=== PATIENT | male | born 1970 | race Caucasian/White ===

== ENCOUNTER 2021-04-16 11:33 | Emergency (ER) | payer OTHER, SELFPAY ==
--- NOTE | 2021-04-16 11:38 | ED.URI ---
HPI - URI/Sore Throat General Chief Complaint: Upper Respiratory Infection Stated Complaint: sinus pressure and ears clogged Time Seen by Provider: 04/16/21 11:39 Source: patient and RN notes reviewed History of Present Illness HPI Narrative: Patient is a 50-year-old male who presents the urgent care with complaints of sinus pressure and bilateral ear discomfort with ringing in the ears for the last week. Patient states that he has been putting [id number] eardrops in the ears, Q-tips and water to try to flush them out. Patient has also been taking Sudafed. No other acute complaints. Denies any fever, chills, nausea or vomiting. No acute distress noted. Patient aware of the plan of care. Some parts of this dictation were generated by voice recognition software and may contain typographical and/or grammatical inaccuracies. Related Data Home Medications Medication Instructions Recorded Confirmed diclofenac sodium 75 mg PO BID 04/16/21 04/16/21 oxygen-air delivery systems 04/16/21 04/16/21 [[facility] Nasal Cpap System] tramadol 50 mg PO BID PRN 04/16/21 04/16/21 zolpidem 10 mg PO HS 04/16/21 04/16/21 Allergies Allergy/AdvReac Type Severity Reaction Status Date / Time No Known Drug Allergies Allergy Unknown Unknown Verified 04/16/21 11:46 Review of Systems Review of Systems: CONSTITUTIONAL: Denies fever, chills, or sweats. EYES: Denies visual changes, redness, or discharge. ENT: Reports of bilateral tinnitus, otalgia, rhinorrhea and sinus pressure CARDIOVASCULAR: Denies chest pain, palpitations, or edema. RESPIRATORY: Reports a mild cough without dyspnea GASTROINTESTINAL: Denies abdominal pain, nausea, vomiting, or diarrhea. GENITOURINARY: Denies dysuria or hematuria. SKIN: Denies rash or itching. MUSCULOSKELETAL: Denies back pain, joint pain, or myalgia. NEUROLOGIC: Denies headache, numbness, or weakness. All other systems reviewed are negative, except as documented in HPI. PMFSH Comments At the time of my signature, I reviewed and agree with the nursing past medical, surgical, social, and family history. There is no relevant family history pertinent to the patient complaint. Exam Narrative: GENERAL: This is a well-nourished, well-developed patient, in no apparent distress. HEAD: normocephalic, atraumatic. EYES: PERRL. Sclera clear/white. Vision is grossly intact. EARS: External ears normal, auditory canals clear and without drainage, cerumen impaction to the right with unable to visualize TM. Moderate effusion behind the left TM without otitis. Hearing grossly intact. NOSE: External nose normal with no obvious nasal discharge, nares without redness, no rhinorrhea. THROAT: Mucous membranes moist, posterior pharynx clear. NECK: Neck supple CARDIOVASCULAR: Regular rate and rhythm without murmurs, gallops, or rubs. RESPIRATORY: Clear to auscultation. Breath sounds equal bilaterally. No wheezes, rales, or rhonchi. SKIN: warm, intact with no suspicious lesions or rash, good texture and turgor. NEURO: awake, alert, and oriented to person, place and time. There were no obvious focal neurologic abnormalities. EXTREMITIES: No clubbing, cyanosis, or edema. Course Course Level of Care: Express Care Visit Vital Signs Vital signs: Vital Signs Temperature 98.5 F 04/16/21 11:40 Pulse Rate 71 04/16/21 11:40 Respiratory Rate 20 04/16/21 11:40 Blood Pressure 137/80 04/16/21 11:40 Pulse Oximetry 100 04/16/21 11:40 Temperature 98.5 F 04/16/21 11:40 Pulse Rate 71 04/16/21 11:40 Respiratory Rate 20 04/16/21 11:40 Blood Pressure 137/80 04/16/21 11:40 Pulse Oximetry 100 04/16/21 11:40 Reviewed MDM - URI/Sore Throat MDM Narrative Medical decision making narrative: Advised the patient to stop taking Sudafed. Sudafed typically does cause the ringing in the ears as well as feeling that your ears are clogged . Advised patient to use Benadryl and Flonase prior to bedtime. Complete the st
[2021-04-16 11:40] VITALS: BP 137/80; PULSE 71; RESP 20; TEMP 36.9; O2SAT 100
== END 2021-04-16 11:56 | disposition home or self-care (01) ==
PROVIDERS: Emergency Provider Nurse Practitioner Family; PCP Internal Medicine
DX: H92.03 Otalgia, bilateral (principal); J32.9 Chronic sinusitis, unspecified; G47.30 Sleep apnea, unspecified
CPT/HCPCS: 99203; G0463

== ENCOUNTER → 2022-02-02 11:09 | Outpatient (CLI) | payer OTHER, SELFPAY ==
--- NOTE | ~2022-02-02 | CT_ITS ---
EXAMINATION: CT sinus wo con DATE: 02/02/2022 11:26 INDICATION: Chronic pansinusitis TECHNIQUE: Computed tomography (CT) of the paranasal sinuses was performed without contrast. Iterativ e reconstruction technique was employed. Exam dose: 274.70 mGy-cm total exam DLP. COMPARISON: None FINDINGS: There is very prominent rightward deviation of the nasal septum; the nasal septum approxima zbigniew the medial wall of the right maxillary sinus. There is prominent asymmetric soft tissue swelling of the right middle and particularly inferior nasa l turbinates. Intralamellar cell of the left middle nasal turbinate. There is mild soft tissue thickening at the right maxillary ostium and infundibulum without occlusion . The ostiomeatal units are otherwise patent. Small size of the right frontal sinus. The paranasal sinuses are otherwise normally developed and aer ated bilaterally. IMPRESSION: Prominent rightward deviation of nasal septum Asymmetric soft tissue swelling of right nasal turbinates Intralamellar cell of left middle nasal turbinate Mild soft tissue thickening at the right maxillary ostium and right infundibulum without occlusion Reviewed, dictated and finalized at [facility]. Reviewed, dictated and finalized at [facility]. S SPECIALIST IMPRESSION: Prominent rightward deviation of nasal septum Asymmetric soft tissue swelling of right nasal turbinates Intralamellar cell of left middle nasal turbinate Mild soft tissue thickening at the right maxillary ostium and right infundibulu m without occlusion
== END ==
PROVIDERS: PCP Internal Medicine; Visit Provider Otolaryngology
DX: J32.4 Chronic pansinusitis (principal); J34.2 Deviated nasal septum; M79.89 Other specified soft tissue disorders; J34.3 Hypertrophy of nasal turbinates
CPT/HCPCS: 70486

== ENCOUNTER 2022-03-22 09:28 | Outpatient (CLI) | payer OTHER, SELFPAY ==
--- NOTE | ~2022-03-22 | XR_ITS ---
Supine and upright views of the abdomen Clinical history: Possible foreign body Findings: Bowel gas pattern is nonspecific. No evidence for obstruction or free air. No abnormal mass lesion or calcification is seen. Osseous structures are intact. Impression: No radiopaque foreign body seen. Reviewed, dictated and finalized at [facility]. 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
== END 2022-03-22 09:29 | disposition home or self-care (01) ==
PROVIDERS: PCP Internal Medicine; Visit Provider Nurse Practitioner
DX: R93.3 Abnormal findings on diagnostic imaging of other parts of digestive tract (principal)
CPT/HCPCS: 74018

== ENCOUNTER 2022-05-14 00:16 | Day surgery (SDC) | payer OTHER, SELFPAY ==
[2022-04-30 14:54] VITALS: BMI 38.7
[2022-05-14 08:28] VITALS: BP 139/93; PULSE 78; RESP 18; TEMP 36.2; O2SAT 99
[2022-05-14] MEDS: LACTATED RINGERS 1,000 ML 150 ML IV CONT (08:29)
--- NOTE | 2022-05-14 08:39 | WPDANESEPPF ---
Anes - Initial Pre Proc Eval Procedure: Operation Date: 05/14/22 09:30 Proposed Procedures p Colonoscopy - Brennan Galicia MD Date/Time: 05/14/22 08:39 Surgeon: Brennan Galicia MD Pre Op Diagnosis: abnormal CAT scan, abdominal pain Patient Data Age: 51 Gender: M Height: 1.68 m Weight: 111.3 kg Last Vital Signs Temp 36.2 C L 05/14/22 08:28 Pulse 78 05/14/22 08:28 Resp 18 05/14/22 08:28 BP 139/93 H 05/14/22 08:28 Pulse Ox 99 05/14/22 08:28 O2 Del Method Room Air 05/14/22 08:28 Allergies Allergy/AdvReac Type Severity Reaction Status Date / Time No Known Drug Allergies Allergy Unknown Unknown Verified 05/14/22 08:26 Home Medications Medication Instructions Recorded Confirmed Type fluticasone propionate 50 2 spray intranasal DAILY #15.8 mL 04/16/21 04/30/22 Rx mcg/actuation nasal spray,suspension (Flonase Allergy Relief) oxygen-air delivery systems 04/16/21 03/22/22 History zolpidem 10 mg tablet 10 mg PO HS 04/16/21 04/30/22 History ascorbic acid (vitamin C) 1 cap PO DAILY 04/30/22 05/14/22 History aspirin 81 mg tablet,delayed 81 mg PO DAILY 04/30/22 04/30/22 History release psyllium husk 0.4 gram capsule 0.4 g PO DAILY 04/30/22 05/14/22 History (Metamucil) celecoxib 200 mg capsule 200 mg PO DAILY 05/11/22 05/11/22 History Patient hx anesthesia problems: none Family hx anesthesia problems: none Results Review: All pre-operative results and documents have been reviewed as part of the pre-operative evaluation. [facility] Past Medical History Medical History (Updated 05/14/22 @ 08:41 by Brennan Galicia MD) Colon cancer screening Family history of esophageal cancer Foreign body in cecum Social History Social History (Updated 03/22/22 @ 08:54 by Lisbeth Bro MA) Smoking status: Never smoker Second hand tobacco smoke exposure: No Alcohol intake: never Substance use: never Substance use type: does not use Lack of Transportation: No Concerned About Future Housing: No Difficulty Paying Gas/Electric Bills: No Difficulty Paying for Meds: No Currently Unemployed: No Education: High School Diploma/GED Living arrangements: with family Occupation/Education: occupation Gender identity (if verbalized by the patient): Male Spiritual care concerns: No Anes - Eval Final PreProcedure Day of Procedure 05/14/22 08:39 Patient weight: morbidly obese Heart: regular rate and rhythm Lungs: clear to auscultation and normal air movement Airway: Mallampati scale class II Neurological: alert and oriented Last oral intake: >/= 8 hours ASA classification: III Emergent: no Anesthetic plan: proceed Anesthesia type and monitoring: general GIVS Results Review: All pre-operative results and documents have been reviewed as part of the pre-operative evaluation. Informed Consent: The patient's anesthetic plan and its attendant risks and benefits were discussed with the patient/family/POA. Questions were solicited and answers provided to the satisfaction of the patient/family/POA.
--- NOTE | 2022-05-14 08:40 | PM.HPGS ---
History of Present Illness History of Present Illness Consent: Risks, benefits, and alternatives have been discussed and questions answered. Patient agrees to proceed with procedure. Chief complaint: abnormal CAT scan, abdominal pain Narrative: Elver Laurent is a 51 year old male here for first screening colonoscopy, also had abdominal pain which prompted CT scan that found possible foreign body in cecum Review of Systems Constitutional: Constitutional: Denies headache(s) and Denies weakness Eyes: Eyes: Denies blurry vision ENT: Reports Normal hearing present, Denies headache(s) and Denies neck pain Cardiovascular: Cardiovascular: Denies chest pain and Denies dyspnea Respiratory: Respiratory: Denies dyspnea Gastrointestinal: Gastrointestinal: Reports no additional gastrointestinal complaints Genitourinary: Genitourinary: Denies dysuria Musculoskeletal: Musculoskeletal: Denies neck pain Integumentary/Breasts: Skin/Breast: Denies dry skin Neurologic: Reports Normal hearing present, Denies headache(s) and Denies weakness Psychiatric: Psychiatric: Denies anxiety Endocrine: Endocrine: Denies change in body appearance Hematologic/Lymphatic: Hematologic/Lymphatic: Denies easy bleeding Allergic/Immunologic: Allergic/Immunologic: Denies urticaria PMFSH Past Medical History Medical History (Updated 05/14/22 @ 08:41 by Brennan Galicia MD) Colon cancer screening Family history of esophageal cancer Foreign body in cecum Social History Social History (Updated 03/22/22 @ 08:54 by Lisbeth Bro MA) Smoking status: Never smoker Second hand tobacco smoke exposure: No Alcohol intake: never Substance use: never Substance use type: does not use Lack of Transportation: No Concerned About Future Housing: No Difficulty Paying Gas/Electric Bills: No Difficulty Paying for Meds: No Currently Unemployed: No Education: High School Diploma/GED Living arrangements: with family Occupation/Education: occupation Gender identity (if verbalized by the patient): Male Spiritual care concerns: No Meds Home Medications and Allergies Home Medications Medication Instructions Recorded Confirmed Type fluticasone propionate 50 2 spray intranasal DAILY #15.8 mL 04/16/21 04/30/22 Rx mcg/actuation nasal spray,suspension (Flonase Allergy Relief) oxygen-air delivery systems 04/16/21 03/22/22 History zolpidem 10 mg tablet 10 mg PO HS 04/16/21 04/30/22 History ascorbic acid (vitamin C) 1 cap PO DAILY 04/30/22 05/14/22 History aspirin 81 mg tablet,delayed 81 mg PO DAILY 04/30/22 04/30/22 History release psyllium husk 0.4 gram capsule 0.4 g PO DAILY 04/30/22 05/14/22 History (Metamucil) celecoxib 200 mg capsule 200 mg PO DAILY 05/11/22 05/11/22 History Allergies Allergy/AdvReac Type Severity Reaction Status Date / Time No Known Drug Allergies Allergy Unknown Unknown Verified 05/14/22 08:26 Vital Signs Vital Signs - 24 hr 05/14/22 08:28 Temperature 97.1 F L Pulse Rate 78 Respiratory Rate 18 Blood Pressure 139/93 H Pulse Oximetry 99 Oxygen Delivery Room Air Exam Const: General: comfortable and no acute distress HENMT: Face/Nose/Sinus: Normal nares present Eyes: General: appearance normal, both eyes and all related structures Neck: Neck: no JVD Resp: Auscultation: clear to auscultation bilaterally Cardio: Rate: regular rate Rhythm: regular rhythm GI: Inspection: non-distended GI Palp: Yes Soft to palpation Skin: General skin exam: normal color Neuro: General: gait normal Speech: normal speech Extrem: General: normal to inspection Psych: Mental Status: mental status grossly normal Assessment and Plan Assessment and plan (1) Colon cancer screening: Code(s): Z12.11 - Encounter for screening for malignant neoplasm of colon Status: Acute Assessment and Plan: colonoscopy (2) Foreign body in cecum:
[2022-05-14 09:01] VITALS: BP 100/54; PULSE 84; RESP 20; O2SAT 98
[2022-05-14 09:11] VITALS: BP 119/51; PULSE 76; RESP 20; O2SAT 98
[2022-05-14 09:21] VITALS: BP 107/75; PULSE 73; RESP 21; O2SAT 98
== END 2022-05-14 09:35 | disposition home or self-care (01) ==
PROVIDERS: PCP Internal Medicine; Visit Provider Internal Medicine Gastroenterology
PROC: 0DJD8ZZ Inspection of Lower Intestinal Tract, Via Natural or Artificial Opening Endoscopic (ICD-10-PCS; CPT 45378; principal; 2022-05-14 09:30)
DX: Z12.11 Encounter for screening for malignant neoplasm of colon (principal); K57.30 Diverticulosis of large intestine without perforation or abscess without bleeding; K64.8 Other hemorrhoids; E66.01 Morbid (severe) obesity due to excess calories; Z68.39 Body mass index [BMI] 39.0-39.9, adult
CPT/HCPCS: 45378; J2704; J7120